=== PATIENT | female | born 1955 | race Caucasian/White ===

== ENCOUNTER → 2016-07-24 | Outpatient (CLI) | payer OTHER, BC ==
[~2016-07-24] MED LIST: AMLOPIDINE; LORTAB 5/500 501 TAB PO
== END ==
LOC: MHCPAIN 12:52
DX: G89.29 Other chronic pain (principal); M47.27 Other spondylosis with radiculopathy, lumbosacral region; M51.16 Intervertebral disc disorders with radiculopathy, lumbar region; M53.3 Sacrococcygeal disorders, not elsewhere classified
CPT/HCPCS: G0463

== ENCOUNTER → 2016-08-06 | Outpatient (CLI) | payer BC | LOC: MHCPAIN 08:10 | DX: M53.3 Sacrococcygeal disorders, not elsewhere classified (principal) | CPT/HCPCS: G0260; J1040; Q9967 ==

== ENCOUNTER → 2016-09-04 | Outpatient (CLI) | payer BC | LOC: MHCPAIN 10:20 | DX: G89.29 Other chronic pain (principal); M47.817 Spondylosis without myelopathy or radiculopathy, lumbosacral region; M53.3 Sacrococcygeal disorders, not elsewhere classified; M70.62 Trochanteric bursitis, left hip; M70.61 Trochanteric bursitis, right hip | CPT/HCPCS: G0463 ==

== ENCOUNTER → 2016-09-17 | Outpatient (CLI) | payer BC | LOC: MHCPAIN 07:47 | DX: M70.61 Trochanteric bursitis, right hip (principal); M70.62 Trochanteric bursitis, left hip | CPT/HCPCS: A9585; J1040 ==

== ENCOUNTER 2016-10-13 12:00 | Outpatient (RCR) | payer BC | END 2016-10-29 14:08 | LOC: WSPT 12:00 | DX: M47.816 Spondylosis without myelopathy or radiculopathy, lumbar region (principal); M53.3 Sacrococcygeal disorders, not elsewhere classified; M25.551 Pain in right hip; M25.552 Pain in left hip ==

== ENCOUNTER → 2016-11-20 | Outpatient (CLI) | payer BC | LOC: MHCPAIN 09:14 | DX: G89.29 Other chronic pain (principal); M47.817 Spondylosis without myelopathy or radiculopathy, lumbosacral region; M53.3 Sacrococcygeal disorders, not elsewhere classified; M70.60 Trochanteric bursitis, unspecified hip; Z87.891 Personal history of nicotine dependence | CPT/HCPCS: G0463 ==

== ENCOUNTER → 2017-01-22 | Outpatient (CLI) | payer BC | LOC: MHCPAIN 09:15 | DX: G89.29 Other chronic pain (principal); M47.817 Spondylosis without myelopathy or radiculopathy, lumbosacral region; M53.3 Sacrococcygeal disorders, not elsewhere classified; M79.2 Neuralgia and neuritis, unspecified; Z87.891 Personal history of nicotine dependence | CPT/HCPCS: G0463 ==

== ENCOUNTER → 2017-02-04 | Outpatient (CLI) | payer BC | LOC: MHCPAIN 10:32 | DX: M47.817 Spondylosis without myelopathy or radiculopathy, lumbosacral region (principal) ==

== ENCOUNTER → 2017-02-12 | Outpatient (CLI) | payer BC | LOC: MHCPAIN 10:13 | DX: G89.29 Other chronic pain (principal); M47.817 Spondylosis without myelopathy or radiculopathy, lumbosacral region; M53.3 Sacrococcygeal disorders, not elsewhere classified; M79.2 Neuralgia and neuritis, unspecified; M70.61 Trochanteric bursitis, right hip; M70.62 Trochanteric bursitis, left hip | CPT/HCPCS: G0463 ==

== ENCOUNTER → 2017-03-04 | Outpatient (CLI) | payer BC | LOC: MHCPAIN 08:50 | DX: M53.3 Sacrococcygeal disorders, not elsewhere classified (principal); M70.62 Trochanteric bursitis, left hip; M70.61 Trochanteric bursitis, right hip | CPT/HCPCS: G0260; J1040; Q9967 ==

== ENCOUNTER → 2017-06-02 | Outpatient (CLI) | payer BC | LOC: MHCPAIN 15:39 | DX: G89.29 Other chronic pain (principal); M47.817 Spondylosis without myelopathy or radiculopathy, lumbosacral region; M53.3 Sacrococcygeal disorders, not elsewhere classified; M70.60 Trochanteric bursitis, unspecified hip | CPT/HCPCS: G0463 ==

== ENCOUNTER → 2017-06-07 | Outpatient (CLI) | payer BC | LOC: COL.VAS 09:47 | DX: I51.7 Cardiomegaly (principal) ==

== ENCOUNTER → 2017-09-01 | Outpatient (CLI) | payer BC | LOC: MHCPAIN 15:42 | DX: G89.29 Other chronic pain (principal); M47.817 Spondylosis without myelopathy or radiculopathy, lumbosacral region; M53.3 Sacrococcygeal disorders, not elsewhere classified; M54.17 Radiculopathy, lumbosacral region; M70.62 Trochanteric bursitis, left hip; M70.61 Trochanteric bursitis, right hip | CPT/HCPCS: G0463 ==

== ENCOUNTER → 2017-09-10 | Outpatient (CLI) | payer BC | LOC: MHCPAIN 08:44 | DX: G57.01 Lesion of sciatic nerve, right lower limb (principal) | CPT/HCPCS: J1040 ==

== ENCOUNTER → 2017-10-06 | Outpatient (CLI) | payer BC | LOC: MHCPAIN 14:51 | DX: G89.29 Other chronic pain (principal); M47.817 Spondylosis without myelopathy or radiculopathy, lumbosacral region; M54.16 Radiculopathy, lumbar region; M53.3 Sacrococcygeal disorders, not elsewhere classified; M54.17 Radiculopathy, lumbosacral region; G24.9 Dystonia, unspecified; M70.62 Trochanteric bursitis, left hip; M70.61 Trochanteric bursitis, right hip | CPT/HCPCS: G0463 ==

== ENCOUNTER → 2017-10-22 | Outpatient (CLI) | payer BC | LOC: MHCPAIN 08:26 | DX: G89.29 Other chronic pain (principal); M47.817 Spondylosis without myelopathy or radiculopathy, lumbosacral region; M54.16 Radiculopathy, lumbar region; M53.3 Sacrococcygeal disorders, not elsewhere classified | CPT/HCPCS: G0463 ==

== ENCOUNTER → 2017-12-01 | Outpatient (CLI) | payer BC | LOC: MHCPAIN 15:35 | DX: G57.00 Lesion of sciatic nerve, unspecified lower limb (principal) | CPT/HCPCS: J0585 ==

== ENCOUNTER → 2017-12-29 | Outpatient (CLI) | payer BC | LOC: MHCPAIN 15:29 | DX: G89.29 Other chronic pain (principal); M47.817 Spondylosis without myelopathy or radiculopathy, lumbosacral region; M54.16 Radiculopathy, lumbar region; M53.3 Sacrococcygeal disorders, not elsewhere classified | CPT/HCPCS: G0463 ==

== ENCOUNTER → 2018-02-02 | Outpatient (CLI) | payer BC | LOC: MHCPAIN 12:20 | DX: G57.03 Lesion of sciatic nerve, bilateral lower limbs (principal) | CPT/HCPCS: J0585 ==

== ENCOUNTER → 2018-03-02 | Outpatient (CLI) | payer BC | LOC: MHCPAIN 15:08 | DX: G89.29 Other chronic pain (principal); M47.817 Spondylosis without myelopathy or radiculopathy, lumbosacral region; M54.16 Radiculopathy, lumbar region; M53.3 Sacrococcygeal disorders, not elsewhere classified | CPT/HCPCS: G0463 ==

== ENCOUNTER → 2018-03-09 | Outpatient (CLI) | payer BC | LOC: MHCPAIN 13:44 | DX: M25.551 Pain in right hip (principal); M25.552 Pain in left hip | CPT/HCPCS: J1040 ==

== ENCOUNTER → 2018-06-08 | Outpatient (CLI) | payer BC | LOC: MHCPAIN 15:43 | DX: G89.29 Other chronic pain (principal); M47.817 Spondylosis without myelopathy or radiculopathy, lumbosacral region; M54.16 Radiculopathy, lumbar region; M53.3 Sacrococcygeal disorders, not elsewhere classified | CPT/HCPCS: G0463 ==

== ENCOUNTER → 2018-06-22 | Outpatient (CLI) | payer BC | LOC: MHCPAIN 09:42 | DX: M70.62 Trochanteric bursitis, left hip (principal) | CPT/HCPCS: J1040 ==

== ENCOUNTER → 2018-09-21 | Outpatient (CLI) | payer BC | LOC: MHCPAIN 15:43 | DX: G89.29 Other chronic pain (principal); M47.817 Spondylosis without myelopathy or radiculopathy, lumbosacral region; M54.16 Radiculopathy, lumbar region; M53.3 Sacrococcygeal disorders, not elsewhere classified | CPT/HCPCS: G0463 ==

== ENCOUNTER → 2018-09-28 | Outpatient (CLI) | payer BC | LOC: MHCPAIN 13:20 | DX: M25.552 Pain in left hip (principal) | CPT/HCPCS: J1040 ==

== ENCOUNTER → 2018-12-28 | Outpatient (CLI) | payer BC | LOC: MHCPAIN 15:26 | DX: G89.29 Other chronic pain (principal); M47.817 Spondylosis without myelopathy or radiculopathy, lumbosacral region; M54.16 Radiculopathy, lumbar region; M53.3 Sacrococcygeal disorders, not elsewhere classified | CPT/HCPCS: G0463 ==

== ENCOUNTER → 2019-01-18 | Outpatient (CLI) | payer BC | LOC: MHCPAIN 14:21 | DX: G57.01 Lesion of sciatic nerve, right lower limb (principal); G57.02 Lesion of sciatic nerve, left lower limb ==

== ENCOUNTER → 2019-02-07 | Outpatient (CLI) | payer BC | LOC: MHCPAIN 15:16 | DX: G89.29 Other chronic pain (principal); M47.817 Spondylosis without myelopathy or radiculopathy, lumbosacral region; M54.16 Radiculopathy, lumbar region; M53.3 Sacrococcygeal disorders, not elsewhere classified | CPT/HCPCS: G0463 ==

== ENCOUNTER → 2019-03-01 | Outpatient (CLI) | payer BC | LOC: MHCPAIN 08:53 | DX: M62.830 Muscle spasm of back (principal); M62.838 Other muscle spasm | CPT/HCPCS: J0585 ==

== ENCOUNTER → 2019-03-07 | Outpatient (CLI) | payer BC | LOC: MC.RAD 08:30 | DX: Z12.31 Encounter for screening mammogram for malignant neoplasm of breast (principal) ==

== ENCOUNTER → 2019-09-06 | Outpatient (CLI) | payer BC | LOC: MHCPAIN 15:15 | DX: M47.817 Spondylosis without myelopathy or radiculopathy, lumbosacral region (principal); M53.3 Sacrococcygeal disorders, not elsewhere classified; M54.5 Low back pain; G89.29 Other chronic pain | CPT/HCPCS: G0463 ==

== ENCOUNTER → 2019-09-20 | Outpatient (CLI) | payer BC | LOC: MHCPAIN 12:17 | DX: M70.61 Trochanteric bursitis, right hip (principal); M70.62 Trochanteric bursitis, left hip; M25.551 Pain in right hip; M25.552 Pain in left hip | CPT/HCPCS: J1040 ==

== ENCOUNTER → 2020-01-10 | Outpatient (CLI) | payer BC | LOC: MHCPAIN 15:22 | DX: M47.817 Spondylosis without myelopathy or radiculopathy, lumbosacral region (principal); M53.3 Sacrococcygeal disorders, not elsewhere classified; M54.5 Low back pain; G89.29 Other chronic pain; M54.16 Radiculopathy, lumbar region | CPT/HCPCS: G0463 ==

== ENCOUNTER 2020-09-25 11:56 | Day surgery (SDC) | payer BC ==
[2020-09-25] VITALS (8 sets, daily range): BP systolic 119–176; BP diastolic 58–86; PULSE 78–88; TEMP 98.7
[2020-09-25] MEDS ORDERED: VICTOZA6 MG/ML SQ (12:28)
[2020-09-25] MEDS ORDERED: PREVACID 30MG30 M1 PO (12:29)
[2020-09-25] MEDS ORDERED: LEXAPRO 10MG10 MG PO (12:29)
[2020-09-25] MEDS ORDERED: COZAAR100 MG PO (12:30)
[2020-09-25] MEDS ORDERED: HCTZ 25MG TAB25 MG PO (12:31)
[2020-09-25] MEDS ORDERED: ULTRAM 50MG TAB50 MG PO (12:33)
[2020-09-25] MEDS ORDERED: FLEXERIL 1010 MG/TAB PO (12:33)
[2020-09-25] MEDS ORDERED: VITAMINC1000TA PO (12:41)
[2020-09-25] MEDS ORDERED: CENTRUM SILVER1 TA2 PO (12:42)
[2020-09-25] MEDS ORDERED: ZYRTEC 10MG10 MG PO (12:44)
[2020-09-25 12:54] LABS: HEMATOCRIT 42.9 % (37.0-47.0); HEMOGLOBIN 13.8 g/dl (12.5-16.0); MEAN CELL VOLUME 83 fl (80.0-100.0); MEAN CORPUSCULAR HEMOGLOBIN 27 pg (27.0-31.0); MEAN CORPUSCULAR HGB CONC 32 g/dl (33.0-37.0); MEAN PLATELET VOLUME 11.1 fl (7.4-10.4); PLATELET COUNT 285 K/mm3 (130-400); RED BLOOD COUNT 5.17 M/mm3 (4.10-5.30); REDCELL DISTRIBUTION WIDTH-CV 15.2 % (11.5-14.5)
[2020-09-25 12:56] LABS: PROTHROMBIN TIME 11.6 SECONDS (9.7-12.8)
[2020-09-25 12:59] LABS: CALCIUM 9.1 mg/dL (8.4-10.2); CREATININE, serum 0.63 (0.52-1.25); PARTIAL THROMBOPLASTIN TIME 33.7 SECONDS (26.0-37.0); POTASSIUM 3.5 mmol/L (3.4-5.0)
[2020-09-25] MEDS ORDERED: PRAVACHOL 40MG40 MG PO (16:20)
[2020-09-25] MEDS ORDERED: ASPIRIN E.C. 8181 MG PO (16:21)
== END 2020-09-25 17:02 | disposition home or self-care (01) ==
LOC: COL.CAR 11:56
PROVIDERS: Internal Medicine Cardiovascular Disease
DX: I25.10 Atherosclerotic heart disease of native coronary artery without angina pectoris (principal); R61 Generalized hyperhidrosis; E11.9 Type 2 diabetes mellitus without complications; K21.9 Gastro-esophageal reflux disease without esophagitis; I10 Essential (primary) hypertension; E78.1 Pure hyperglyceridemia; E66.9 Obesity, unspecified
CPT/HCPCS: C1769; J1644; J2250; J3010; Q9967

== ENCOUNTER 2020-11-05 14:56 | Outpatient (CLI) | payer BC ==
[2020-11-05] VITALS (7 sets, daily range): BP systolic 131–169; BP diastolic 60–85; PULSE 72–103; TEMP 98.7
[~2020-11-05 14:56] MED LIST changes: +ASPIRIN E.C. 8181 MG PO; +CENTRUM SILVER1 TA2 PO; +COZAAR100 MG PO; +FLEXERIL 1010 MG/TAB PO; +HCTZ 25MG TAB25 MG PO; +LEXAPRO 10MG10 MG PO; +PRAVACHOL 40MG40 MG PO; +PREVACID 30MG30 M1 PO; +ULTRAM 50MG TAB50 MG PO; +VICTOZA6 MG/ML SQ; +VITAMINC1000TA PO; +ZYRTEC 10MG10 MG PO
== END 2020-11-05 15:45 | disposition home or self-care (01) ==
LOC: EUO 14:56
DX: U07.1 COVID-19 (principal)
CPT/HCPCS: Q0244